=== PATIENT | male | born 1945 | race Caucasian/White ===

== ENCOUNTER 2023-06-29 10:55 | Emergency (ER) | payer MEDICARE, BC, OTHER ==
[~2023-06-29] VITALS: Ht 180.3 cm; Wt 91.0 kg
[~2023-06-29 10:55] MED LIST: ALLEGRA180 MG OR; AMOXICILLIN/CL875 MG PO; APAP OR; ATIVAN1 M1 OR; ATIVAN1 M1 PO; ATIVAN1 MG OR; AUGMENTIN875TAB OR; AUGMENTIN875TAB PO; AVELOX400 MG PO; BETAPACE AF160 MG OR; BL ADULT ASA81 MG OR; CARDURA4 MG OR; CEPHALEXIN500 MG OR; CIMETIDINE400 MG OR; CLINDAMYCIN300 MG PO; COUMADIN3 MG OR; COUMADIN4 MG OR; CRESTOR20 MG OR; CRESTOR20 MG PO; DEPO-MEDROL80 MG/ML IM; DIGOXIN0.25 MG; DILTIAZEM OR; FISH OIL300 MG OR; FLONASE NASAL50 MCG; LIPITOR40 MG PO; MEDDOSEPAK OR; MEDDOSEPAK PO; METOPROL TAR50 MG PO; MULTIVITAMI1 OR; NASONEX50 MCG/AC; NEURONTIN100 MG PO; PEPCID20 MG PO; PRADAXA150 MG PO; ROBITUSS20 OR; SOTALOL AF80 MG OR; TESSALON PER100 MG PO; WARFARIN4 MG OR; ZETIA10 MG OR; ZITHROMAX500 MG PO; ZOLOFT50 MG OR; ZOLOFT50 MG PO; ZYRTEC10 M5 PO; [UNRECOGNIZED DRUG - OTHER] OP; [UNRECOGNIZED DRUG - OTHER] OR
[2023-06-29 11:15] VITALS: BP 129/73
[2023-06-29 11:30] VITALS: BP 112/69
[2023-06-29 11:46] VITALS: BP 125/71
[2023-06-29 12:00] VITALS: BP 131/70
[2023-06-29 12:15] VITALS: BP 132/78
[2023-06-29 13:25] VITALS: BP 132/78
== END 2023-06-29 14:02 | disposition home or self-care (01) ==
LOC: ED 10:55
DX: S60.221A Contusion of right hand, initial encounter (principal); S00.81XA Abrasion of other part of head, initial encounter; I10 Essential (primary) hypertension; I48.91 Unspecified atrial fibrillation; W01.0XXA Fall on same level from slipping, tripping and stumbling without subsequent striking against object, initial encounter; Z95.0 Presence of cardiac pacemaker